=== PATIENT | female | born 1945 | race Two or more races ===

== ENCOUNTER 2016-05-14 11:56 | Emergency (ER) | payer OTHER ==
[2016-05-14 12:02] VITALS: BMI 28.0
--- NOTE | 2016-05-14 12:08 | PDOC ---
[id number] No Limitations - History of Present Illness Initial Comments: CHIEF COMPLAINT: 70 y/o afebrile female with PMH HTN, asthma and DM sent in by Dr. Hernandez for further work up of chest pain and cough. HISTORY OF PRESENT ILLNESS: The patient states she was in Dr. Hernandez's office this morning c/o chest pain with dry cough and SOB for the past 3 days. She states he also checked her sugar in the office and it was high but she's unsure of how high. She denies f/c, STALLWORTH, neck pain, changes in vision/hearing, n/v/d, abd pain, left arm pain, jaw pain, hematuria, dysuria. She is taking all medications as prescribed. Vital signs on arrival are notable for BP of 163/81. REVIEW OF SYSTEMS: GENERAL/CONSTITUTIONAL: No fever/chills. No weakness. No weight change. HEAD, EYES, EARS, NOSE AND THROAT: No change in vision. No ear pain or discharge. No sore throat. CARDIOVASCULAR: +chest pain and SOB. RESPIRATORY: +dry cough and wheezing. No hemoptysis. GASTROINTESTINAL: No abd pain, nausea, vomiting, diarrhea. GENITOURINARY: No dysuria, frequency, or change in urination. MUSCULOSKELETAL: No joint or muscle swelling or pain. No neck or back pain. SKIN: No rash or easy bruising. NEUROLOGIC: No headache, vertigo, loss of consciousness, or loss of sensation. PHYSICAL EXAM: GENERAL: The patient is awake, alert, and fully oriented, in no acute distress. She is very well appearing, ambulatory, in NAD or obvious discomfort. HEAD: Normal with no signs of trauma. ENT: Pupils equal, round and reactive to light, extraocular movements intact, sclera anicteric, conjunctiva clear. Neck supple. LUNGS: Clear to auscultation bilaterally. Normal excursion. No respiratory distress or use of accessory muscles. CV: RRR, S1/S2, no MRG. Cap refill < 2 sec. ABDOMEN: Soft, non-distended, non-tender even to deep palpation, no hepatomegaly or splenomegaly, no masses. EXTREMITIES: Normal range of motion, no edema. NEUROLOGICAL: Normal speech, normal gait. CN II-XII grossly intact. PSYCH: Normal mood, normal affect. SKIN: Warm, dry, normal turgor, no rashes or lesions noted. <Wohltman,Alondra - Last Filed: 05/14/16 17:16> <Ric Villar - Last Filed: 05/18/16 20:06> - General Chief Complaint: Blood Sugar Problem Stated Complaint: WHEEZING, HIGH SUGAR/BP (PCP SENT) Time Seen by Provider: 05/14/16 12:06 Past History - Past Medical History Asthma: Yes Cardiac Disorders: Yes (ANGINA) GI Disorders: Yes (MASS) HTN: Yes - Surgical History Cholecystectomy: Yes - Immunization History Td Vaccination: Yes Immunization Up to Date: Yes - Psycho/Social/Smoking Cessation Hx Anxiety: No Suicidal Ideation: No Smoking Status: No Smoking History: Never smoked Years of Tobacco Use: 1 Number of Cigarettes Smoked Daily: 6 Cigars Per Day: 0 Information on smoking cessation initiated: No Hx Alcohol Use: No Drug/Substance Use Hx: No Substance Use Type: None <Alondra Umanzor - Last Filed: 05/14/16 17:16> <Ric Villar - Last Filed: 05/18/16 20:06> - Past Medical History Allergies/Adverse Reactions: Allergies Allergy/AdvReac Type Severity Reaction Status Date / Time No Known Allergies Allergy Verified 05/14/16 12:01 Home Medications: Ambulatory Orders Albuterol Sulfate Inhaler - [Ventolin HFA Inhaler -] 1 inh PO DAILY 05/02/14 *Physical Exam - Vital Signs Last Vital Signs Temp Pulse Resp BP Pulse Ox 97.7 F 71 18 163/81 98 05/14/16 11:59 05/14/16 11:59 05/14/16 11:59 05/14/16 11:59 05/14/16 11:59 <Alondra Umanzor - Last Filed: 05/14/16 17:16> - Vital Signs Last Vital Signs Temp Pulse Resp BP Pulse Ox 98.1 F 81 16 129/76 99 05/14/16 17:15 05/14/16 17:15 05/14/16 17:15 05/14/16 17:15 05/14/16 17:15 <Ric Villar - Last Filed: 05/18/16 20:06> ED Treatment Course - LABORATORY CBC & Chemistry Diagram: 05/14/16 13:00 05/14/16 13:52 <Alondra Umanzor - Last Filed: 05/14/16 17:16> - LABORATORY CBC & Chemistry Diagram: 05/14/16 13:00 05/14/16 13:52 - ADDITIONAL ORDERS Additional order review: 05/14/16 13:00 Urine Culture - Final Urine - Urine Clean Catch NO GROWTH OBTAINED 05/14/16 13:00 RBC 5.01 MCV 84.4 MCHC 32.8 RDW 13.8 MPV 9.8 Neutrophils % 64.1 Lymphocytes % 27.5 D Monocytes % 5.3 Eosinophils % 1.9 D Basophils % 1.2 - Medications Given in the ED: ED Medications Discontinued Medications Generic Name Dose Route Start Last Admin Trade Name Freq PRN Reason Stop Dose Admin Albuterol/Ipratropium 1 amp 05/14/16 15:06 05/14/16 15:36 Duoneb - NEB 05/14/16 15:07 1 amp ONCE ONE Administration <Ric Villar - Last Filed: 05/18/16 20:06> Medical Decision Making - Medical Decision Making A/P: 70 y/o female with dry cough, chest pain and wheezing for the past few days. Also reported "high sugar" in Mary's office today. Plan is as follows: 1. EKG 2. CXR 3. Labs CXR IMPRESSION: No abnormality seen. EKG normal Labs unremarkable. The patient states she feels well and wants to go home. Suggested she f/u with Dr. Hernandez next week. I tried calling him but [employer] is covering and I never received a call back. Instructed her to return to the ER with any worsening or concerning symptoms. The patient verbalizes understanding of all instructions, has no further questions and is awaiting discharge. <Alondra Umanzor - Last Filed: 05/14/16 17:16> - Medical Decision Making The patient was seen and evaluated in conjunction with MARC Wright under my direct supervision, ancillary studies were reviewed. I agree with the plan as outlined by MARC Wright . <Ric Villar - Last Filed: 05/18/16 20:06> *DC/Admit/Observation/Transfer <Alondra Umanzor - Last Filed: 05/14/16 17:16> <Ric Villar - Last Filed: 05/18/16 20:06> Diagnosis at time of Disposition: Cough HTN (hypertension) Qualifiers: Hypertension type: unspecified secondary hypertension Qualified Code(s): I15.9 - Secondary hypertension, unspecified - Discharge Dispostion Disposition: HOME Condition at time of disposition: Good - Referrals Referrals: Pino Hernandez MD [Primary Care Provider] - (Call Tuesday) - Patient Instructions Printed Discharge Instructions: DI for High Blood Pressure, DI for Cough -- Adult Additional Instructions: Discharge Instructions: -Continue taking all medications as prescribed -Call Dr. Hernandez on Tuesday morning to schedule follow up appointment -Return to the ER with any worsening or concerning symptoms
[2016-05-14 13:08] LABS: URINE APPEARANCE CLEAR; URINE BILIRUBIN NEGATIVE (NEGATIVE); URINE COLOR LTYELLOW; URINE GLUCOSE (UA) 1+ (NEGATIVE); URINE KETONE NEGATIVE (NEGATIVE); URINE LEUK ESTERASE NEGATIVE (NEGATIVE); URINE NITRITE NEGATIVE (NEGATIVE); URINE PROTEIN NEGATIVE (NEGATIVE); URINE UROBILINOGEN NEGATIVE E.U./dl (0.2-1.0)
[2016-05-14 13:13] LABS: BASOPHIL 1.2 % (0-2.0); EOSINOPHIL 1.9 % (0-4.5); MCH 27.7 pg (25.7-33.7); MCHC 32.8 g/dl (32.0-36.0); MEAN CELL VOLUME 84.4 fl (80-96); MEAN PLT VOLUME 9.8 fl (7.5-11.1); NEUTROPHILS 64.1 % (42.8-82.8); RDW 13.8 % (11.6-15.6); URINE BLOOD 2+ (NEGATIVE); WHITE BLOOD COUNT 12.8 K/mm3 (4.0-10.0)
[2016-05-14 13:14] LABS: URINE MUCUS RARE; URINE RBC 2 /hpf (0-3); URINE WBC <1 /hpf (3-5)
[2016-05-14 13:43] LABS: PLATELET COMMENT2 UNABLE TO ENUMERATE; PLATELET ESTIMATE DECREASED (NORMAL)
[2016-05-14] MEDS ORDERED: ALBUTEROL SO4 2.5/IPRATROPIUM 0.5 INH SOL 3 ML VIAL.NEB. NEB ONE ×2 (15:06→15:30)
[2016-05-14 15:11] LABS: ALBUMIN 4.1 g/dl (3.4-5.0); ALK PHOS 128 U/L (45-117); ANION GAP 11 (8-16); BILIRUBIN,TOTAL 0.5 mg/dL (0.2-1.0); CALCIUM 9.7 mg/dL (8.5-10.1); CO2 25 mmol/L (21-32); CREATININE 0.7 mg/dL (0.55-1.02); GLUCOSE,RANDOM 148 mg/dL (74-106); SGOT/AST 17 U/L (15-37); TOT PROT 7.7 g/dl (6.4-8.2); TROPONIN I < 0.02 ng/ml (0.00-0.05)
[2016-05-14 15:33] LABS: SGPT/ALT 26 U/L (12-78)
[2016-05-14 17:16] VITALS: BP 129/76; PULSE 81; TEMP 98.1
--- NOTE | 2016-05-15 18:32 | EKG ---
Test Reason : Blood Pressure : / mmHG Vent. Rate : 066 BPM Atrial Rate : 066 BPM P-R Int : 152 ms QRS Dur : 088 ms QT Int : 398 ms P-R-T Axes : 038 068 037 degrees QTc Int : 417 ms NORMAL SINUS RHYTHM NORMAL ECG WHEN COMPARED WITH ECG OF 02-MAY-2014 13:01, NO SIGNIFICANT CHANGE WAS FOUND Confirmed by ARTURO RAMIREZ MD ([id number]) on 05/15/2016 6:31:58 PM Referred By: Confirmed By:ARTURO RAMIREZ MD
== END 2016-05-14 17:33 | disposition home or self-care (01) ==
LOC: JER 11:56
PROC: 3E0F7GC Introduction of Other Therapeutic Substance into Respiratory Tract, Via Natural or Artificial Opening (ICD-10-PCS; principal; 2016-05-14)
DX: I15.9 Secondary hypertension, unspecified (principal); R05 Cough
CPT/HCPCS: 36415; 71020-TC; 80053; 81003; 81015; 82550; 84484; 85025; 87086; 93005; 93010; 94640; 99283-25

== ENCOUNTER 2018-09-19 12:49 | Emergency (ER) | payer OTHER ==
[2018-09-19 13:30] VITALS: TEMP 98.2; BMI 31.1
[2018-09-19 14:53] LABS: BASO % 0.5 % (0-2.0); EOS % 2.6 % (0-4.5); HEMATOCRIT 37.6 % (32.4-45.2); HEMOGLOBIN 12.7 GM/dL (10.7-15.3); LYMPH % 28.5 % (8-40); MCH 28.6 pg (25.7-33.7); MCHC 33.8 g/dl (32.0-36.0); MEAN CELL VOLUME 84.6 fl (80-96); MONO % 9.2 % (3.8-10.2); NEUT % 59.2 % (42.8-82.8); PLATELET COUNT 282 K/MM3 (134-434); RBC 4.44 M/mm3 (3.60-5.2); RDW 13.1 % (11.6-15.6); WHITE BLOOD COUNT 7.4 K/mm3 (4.0-10.0)
[2018-09-19] MEDS ORDERED: methylPREDNISolone NA SUCC 125 MG/2 ML VIAL IVPUSH ONE (14:55)
[2018-09-19] MEDS ORDERED: ALBUTEROL SO4 2.5/IPRATROPIUM 0.5 INH SOL 3 ML VIAL.NEB. NEB ONE ×2 (14:55→15:16)
[2018-09-19] MEDS ORDERED: methylPREDNISolone NA SUCC 125 MG/2 ML VIAL ONE (15:16)
[2018-09-19 15:22] LABS: ALBUMIN 3.9 g/dl (3.4-5.0); BILIRUBIN,TOTAL 0.3 mg/dL (0.2-1); BLOOD UREA NITROGEN 12.9 mg/dL (7-18); CALCIUM 9.2 mg/dL (8.5-10.1); CREATININE 0.7 mg/dL (0.55-1.3); POTASSIUM 3.7 mmol/L (3.5-5.1); TOT PROT 7.6 g/dl (6.4-8.2)
--- NOTE | 2018-09-19 16:02 | PDOC ---
History of Present Illness - General Chief Complaint: Shortness of Breath Stated Complaint: PNEUMONIA Time Seen by Provider: 09/19/18 14:05 History Source: Patient, Family, Old Records Exam Limitations: No Limitations - History of Present Illness Initial Comments: HPI: 73 y/o female presenting to [facility] ER from Dr. Feldman clinic complaining of shortness of breath, cough productive of green and yellow sputum, upper respiratory congestion, and subjective fevers since last Tuesday. Further endorses throat itching. Some relief with prescribed asthma inhaler and Zyrtec. Was evaluated in clinic today and sent to this facility for evaluation for pneumonia. Additionally, pt expressed concern for dark stool after taking Pepto Bismol. Social Hx: - Remote smoking history Medical Hx: - Non-insulin dependent diabetes - HTN - HLD - Angina - Asthma - Arthritis Surgical Hx: - s/p cholecystectomy Review of Systems: In addition to that documented in the HPI above, the additional ROS was obtained : Constitutional: Endorses fevers and chills Head: Denies vision changes ENMT: Denies sore throat CV: Denies chest pain Resp: Per HPI GI: Denies vomiting or diarrhea : Denies painful urination or hematuria MSK: Denies recent trauma Skin: Denies new rashes Neuro: Denies new numbness or tingling or weakness Endocrine: Denies polyuria Heme: Denies bleeding or bruising Physical Examination: Constitutional: Well-developed, well-nourished, nontoxic adult female in no acute distress or obvious discomfort. Found semi-fowlers on hospital bed. Alert and oriented x4. Answered all questions appropriately and completely. Speech was non-labored, non-pressured. Throat: Oral cavity and pharynx normal. No inflammation, swelling, exudate, or lesions. Teeth and gingiva in good general condition. Neck: Supple, trachea is midline. Cardiovascular / Chest: Regular rate and regular rhythm. No murmur, rubs, clicks , or gallops. Peripheral pulses: radial pulses full. Respiratory: Breathing unlabored. Speaking in multi-word responses. Equal chest rise and fall. Diffuse rhonchi and trace expiratory wheeze without focal consolidation, rales, or stridor. Gastrointestinal: abdomen is soft, non-tender, non-distended. Neuro: Alert and oriented. Moving all four extremities spontaneously. Skin: Warm, dry, and intact. Psych: Affect: pleasant. Mood: normal. MDM: *Reviewed vital signs, nursing notes, and prior visit documentation (if available). 73 y/o female presenting from clinic for SOB, productive cough, and URI symptoms. Afebrile. Vitals unremarkable for hypotension or tachycardia. Normoxic on room air. Physical exam as described above. CXR unremarkable for acute cardiopulmonary process. CBC unremarkable for leukocytosis. Suspect likely acute bronchitis. Ordered DuoNebs and Solumedrol for symptom Pt reassessed. Found smiling and laughing. States her breathing is much better. Adventitious lung sounds improved since initial exam. Will prescribe two day course of Prednisone and Azithromycin. Discussed imaging and laboratory results with pt. Answered all questions. Provided return precautions. Pt expressed verbal understanding and agreement with plan to discharge home with outpatient follow up. Serjio Henley M.D., PGY2 Emergency Medicine Resident Past History - Past Medical History Allergies/Adverse Reactions: Allergies Allergy/AdvReac Type Severity Reaction Status Date / Time No Known Allergies Allergy Verified 09/19/18 13:31 Home Medications: Ambulatory Orders Albuterol Sulfate Inhaler - [Ventolin HFA Inhaler -] 1 inh PO DAILY 05/02/14 Azithromycin [Zithromax 250mg Tablets -] 250 mg PO UTDICT #6 tab 09/19/18 Glipizide 5 mg PO BID 09/19/18 Prednisone [Deltasone] 40 mg PO DAILY 2 Days #4 tablet 09/19/18 Ramipril 5 mg PO DAILY 09/19/18 Asthma: Yes Cardiac Disorders: Yes (ANGINA) COPD: No Dementia: Yes GI Disorders: Yes (MASS) HTN: Yes - Surgical History Cholecystectomy: Yes - Immunization History Td Vaccination: Yes Immunization Up to Date: Yes - Suicide/Smoking/Psychosocial Hx Smoking Status: No Smoking History: Never smoked Years of Tobacco Use: 1 Have you smoked in the past 12 months: No Number of Cigarettes Smoked Daily: 6 Cigars Per Day: 0 Information on smoking cessation initiated: No Hx Alcohol Use: No Drug/Substance Use Hx: No Substance Use Type: None *Physical Exam - Vital Signs Last Vital Signs Temp Pulse Resp BP Pulse Ox 98.2 F 73 22 H 140/64 98 09/19/18 13:20 09/19/18 13:20 09/19/18 13:20 09/19/18 13:20 09/19/18 13:20 ED Treatment Course - LABORATORY CBC & Chemistry Diagram: 09/19/18 14:15 09/19/18 14:15 - ADDITIONAL ORDERS Additional order review: Laboratory Results 09/19/18 09/19/18 09/19/18 15:00 14:15 14:15 Sodium Potassium Chloride Carbon Dioxide Anion Gap BUN Creatinine Est GFR (CKD-EPI)AfAm Est GFR (CKD-EPI)NonAf Random Glucose Calcium Total Bilirubin AST ALT Alkaline Phosphatase Troponin I < 0.02 B-Natriuretic Peptide 24.3 Total Protein Albumin Stool Occult Blood Negative 09/19/18 14:15 Sodium 139 Potassium 3.7 Chloride 106 Carbon Dioxide 26 Anion Gap 7 L BUN 12.9 Creatinine 0.7 Est GFR (CKD-EPI)AfAm 101.03 Est GFR (CKD-EPI)NonAf 87.17 Random Glucose 157 H Calcium 9.2 Total Bilirubin 0.3 AST 24 ALT 43 Alkaline Phosphatase 114 Troponin I B-Natriuretic Peptide Total Protein 7.6 Albumin 3.9 Stool Occult Blood 09/19/18 14:15 RBC 4.44 MCV 84.6 MCHC 33.8 RDW 13.1 MPV 9.0 Neutrophils % 59.2 Lymphocytes % 28.5 Monocytes % 9.2 Eosinophils % 2.6 Basophils % 0.5 - Medications Given in the ED: ED Medications Discontinued Medications Generic Name Dose Route Start Last Admin Trade Name Freq PRN Reason Stop Dose Admin Albuterol/Ipratropium 2 amp 09/19/18 14:55 09/19/18 15:05 Duoneb - NEB 09/19/18 14:56 2 amp ONCE ONE Administration Methylprednisolone Sodium Succinate 125 mg 09/19/18 14:55 09/19/18 15:25 Solu-Medrol - IVPUSH 09/19/18 14:56 125 mg ONCE ONE Administration *DC/Admit/Observation/Transfer Diagnosis at time of Disposition: Viral URI Reactive airway disease Qualifiers: Asthma severity: mild Asthma persistence: intermittent Asthma complication type : uncomplicated Qualified Code(s): J45.20 - Mild intermittent asthma, uncomplicated - Discharge Dispostion Disposition: HOME Condition at time of disposition: Improved Decision to Admit order: No - Prescriptions Prescriptions: Azithromycin [Zithromax 250mg Tablets -] 250 mg PO UTDICT #6 tab Prednisone [Deltasone] 40 mg PO DAILY 2 Days #4 tablet - Referrals Referrals: Pino Hernandez MD [Primary Care Provider] - - Patient Instructions Printed Discharge Instructions: DI for Acute Bronchitis Additional Instructions: You were seen today for a productive cough and shortness of breath. Your chest xray did not show signs of pneumonia. Your blood work was normal. Your symptoms are likely bronchitis. You may continue to experience a cough and congestion for the next few days. I have sent two prescriptions to your pharmacy. One is an antibiotic and one is a steroid. Take as directed on the package insert. Do not exceed the recommended dosage. You can take over the counter Tylenol as needed for pain or fever. Take as directed on the package insert. Do not exceed the recommended dosage. Follow up with your primary care doctor within the next 3-4 days. You will need to call to make an appointment. The number is included in this packet. A copy of todays results are attached to this packet. Take it to the appointment so your doctor can review them. Go to the nearest emergency department if your condition worsens or you feel like you need additional emergency evaluation. Print Language: MOZAMBICAN - Post Discharge Activity
[2018-09-19 16:10] VITALS: BP 136/64; PULSE 95
--- NOTE | 2018-09-19 16:45 | PDOC ---
Documentation entered by Carlos Mariano SCRIBE, acting as scribe for Rubén Kapadia MD. Rubén Kapadia MD: This documentation has been prepared by the García flanagan Renju, SCRIBE, under my direction and personally reviewed by me in its entirety. I confirm that the documentation accurately reflects all work, treatment, procedures, and medical decision making performed by me. Attending Attestation - Resident Resident Name: Serjio Henley - ED Attending Attestation I have performed the following: I have examined & evaluated the patient, The case was reviewed & discussed with the resident, I agree w/resident's findings & plan, Exceptions are as noted - HPI HPI: 09/19/18 16:19 The patient is a 73 year old female with a past medical history of hypertension , diabetes, and asthma who presents to the emergency department for evaluation of rhinorrhea, sore throat, wheezing, and productive cough with brown and yellow sputum since Tuesday. Per family at bedside, patient has had black stool since Tuesday. She notes paresthesia in legs and face. Denies abdominal pain, chest pain, shortness of breath. Headache, dizziness, fevers, chills, nausea,and vomiting. - Physicial Exam PE: 09/19/18 16:19 ROS: A complete review of 10 out of 10 review of systems is taken and is negative apart from what is previously mentioned below and in the HPI. Vitals: Triage Vital signs reviewed General Appearance: no acute distress, well nourished well developed, Head: Atraumatic, Eyes: Pupils equal reactive round, extraocular movement intact Neck: Supple; Chest Wall: Nontender Cardiac: Regular rate and rhythm, no murmurs, no rubs, no gallops, Lungs: (+)Bronchospasms. (+)Coarse breath sounds auscultated bilaterally. Abdomen: Soft, non distended, normal bowel sounds, non tender to palpation Rectal: Normal exam. Extremities: Full range of motion to all extremities, no cyanosis, clubbing, or edema Skin: Warm and dry, no rashes or lesions, no rash, no petechiae Neuro: Strength intact to all extremities, Sensation intact to all extremities, gait normal Psych: normal mood, normal affect - Medical Decision Making 09/19/18 18:47 73 years old history examination consistent with viral URI with some very mild GI complaints dark stool but on rectal examination had brown stool which was guaiac-negative She had subtle bronchospasm with cough on examination and rhinorrhea She was given DuoNeb's and Solu-Medrol for her reactive airway symptoms her laboratory analysis was unremarkable her EKG was unremarkable her cardiac enzyme was negative her chest x-ray demonstrated no acute infection Reevaluation after steroids and nebs patient feels much better breathing is markedly improved she is asking to go home Given her age and risk factors she'll be treated with a Z-Sherwin as well as a short course of steroids has a nebulizer at home that she can use. She'll follow-up with her primary care provider in 2 days she will return to the emergency department for any severe worsening symptoms or for any concerns.
--- NOTE | 2018-09-19 17:04 | EKG ---
Test Reason : Blood Pressure : / mmHG Vent. Rate : 073 BPM Atrial Rate : 073 BPM P-R Int : 142 ms QRS Dur : 088 ms QT Int : 386 ms P-R-T Axes : 056 039 -07 degrees QTc Int : 425 ms NORMAL SINUS RHYTHM NONSPECIFIC T WAVE ABNORMALITY ABNORMAL ECG WHEN COMPARED WITH ECG OF 14-MAY-2016 12:26, INVERTED T WAVES HAVE REPLACED NONSPECIFIC T WAVE ABNORMALITY IN INFERIOR LEADS INVERTED T WAVES HAVE REPLACED NONSPECIFIC T WAVE ABNORMALITY IN ANTERIOR LEADS Confirmed by MD Lenin, Ceasar ([id number]) on 09/19/2018 5:04:02 PM Referred By: Confirmed By:Ceasar Phelps MD
== END 2018-09-19 16:26 | disposition home or self-care (01) ==
LOC: JER 12:49
PROC: 3E0F7GC Introduction of Other Therapeutic Substance into Respiratory Tract, Via Natural or Artificial Opening (ICD-10-PCS; principal; 2018-09-19)
PROC: 3E0333Z Introduction of Anti-inflammatory into Peripheral Vein, Percutaneous Approach (ICD-10-PCS; 2018-09-19)
DX: J45.20 Mild intermittent asthma, uncomplicated (principal); J06.9 Acute upper respiratory infection, unspecified; B97.89 Other viral agents as the cause of diseases classified elsewhere; I25.119 Atherosclerotic heart disease of native coronary artery with unspecified angina pectoris; I11.0 Hypertensive heart disease with heart failure; E11.9 Type 2 diabetes mellitus without complications; Z79.84 Long term (current) use of oral hypoglycemic drugs; E78.5 Hyperlipidemia, unspecified; J45.909 Unspecified asthma, uncomplicated; M12.9 Arthropathy, unspecified
CPT/HCPCS: 36415; 71046-TC-FY; 80053; 82272; 83880; 84484; 85025; 93005; 93010; 94640; 96374; 99284-25

== ENCOUNTER 2019-01-16 12:33 | Inpatient (IN) | payer OTHER ==
--- NOTE | 2019-01-16 13:53 | PDOC ---
History of Present Illness - General Chief Complaint: Head/Neck problem Stated Complaint: FACE NUMBNESS Time Seen by Provider: 01/16/19 13:01 tPA Exclusion checklist 3-4.5h - Time Elapsed Date last known well: 01/15/19 Time last known well: 12:00 Elaspsed time: 4 Day(s) and 5 Hour(s) and 33 Minutes - Thrombolytic Therapy Candidate Is patient eligible for thrombolytic therapy: No - Ineligibility reason(s) Reasons No tPA given: Outside of window - delayed arrival NIH Stroke Scale - Last Known Well Date/Time & Onset Date Last Known Well: 01/15/19 Time Last Known Well: 12:00 - Initial Evaluation Level of consciousness: Alert Ask patient the month and their age: Answers both correctly Ask patient to open & close eyes; make fist and let go: Obeys both correctly Best gaze (horizontal eye movement): Normal Visual field testing: No visual field loss Facial paresis (Show teeth/raise eyebrows/close eyes tight): Normal symmetrical movement Motor Function: Left Arm: Normal Motor Function: Right Arm: Normal (extends arm 90 (or 45) degrees for 10 seconds without drift Motor Function: Left Leg: Normal (extends leg 30 degrees for 5 seconds without drift) Motor Function: Right Leg: Normal (extends leg 30 degrees for 5 seconds without drift) Limb Ataxia: No ataxia Sensory(Use pinprick test arms,legs,trunk,face/side to side): Normal Best language (Describe picture, name items, read sentences): No Aphasia Dysarthria (read several words): Normal articulation Extinction and Inattention: No abnormality - Total Score NIH Stroke Scale Score: 0 Past History - Past Medical History Allergies/Adverse Reactions: Allergies Allergy/AdvReac Type Severity Reaction Status Date / Time No Known Allergies Allergy Verified 09/19/18 13:31 Home Medications: Ambulatory Orders Aspirin Coated [Ecotrin -] 81 mg PO DAILY tablet.ec 01/17/19 Atorvastatin Ca [Lipitor] 20 mg PO HS #30 tablet 01/17/19 Ramipril [Altace] 10 mg PO DAILY capsule 01/17/19 metFORMIN HCL [Glucophage -] 500 mg PO BID@0700,1630 #60 tablet 01/17/19 Asthma: Yes Cardiac Disorders: Yes (ANGINA) COPD: No Dementia: Yes GI Disorders: Yes (MASS) HTN: Yes - Surgical History Cholecystectomy: Yes - Immunization History Td Vaccination: Yes Immunization Up to Date: Yes - Psycho Social/Smoking Cessation Hx Smoking Status: No Smoking History: Never smoked Years of Tobacco Use: 1 Have you smoked in the past 12 months: No Number of Cigarettes Smoked Daily: 6 Cigars Per Day: 0 Hx Alcohol Use: No Drug/Substance Use Hx: No Substance Use Type: None *Physical Exam - Vital Signs Last Vital Signs Temp Pulse Resp BP Pulse Ox 98 F 75 18 194/92 H 99 01/16/19 12:51 01/16/19 12:51 01/16/19 12:51 01/16/19 12:51 01/16/19 12:55 ED Treatment Course - LABORATORY CBC & Chemistry Diagram: 01/17/19 05:25 01/17/19 05:25 Medical Decision Making - Medical Decision Making 01/16/19 14:19 HPI: 73yo F hx NIDDM, HTN, vertigo, HLD, angina, asthma, and OA BIBA from PCP Dr Hernandez c/o acute on chronic intermittent numbness of entire b/l face and scalp, L hand, and L ankle x years, now present x2 days, with intermittent vertigo since yesterday. Pt was at PCP's office for normal checkup when she mentioned these intermittent chronic sx. Stated most recent occurrence of numbness started gradually 2 days ago, intermittent since then, somewhat present now, hx similar sx x years of same parts of body. Denies stroke or previous workup for sx. Endorses a little head pressure now, intermittent, entire head, mild, gradual onset. Also c/o vertigo intermittently since yesterday, resolved now, consistent with known vertigo. Pt has not tried any medications. Pt is able to walk without assistance, no change in walking. Denies trauma, head injury, neck stiffness, fever, chills, fatigue, numbness/tingling, weakness, vision changes, shortness of breath, cough, chest pain, palpitations, leg swelling, abdominal pain, blood in stool, diarrhea, constipation, nausea, vomiting, dysuria, hematuria, confusion, hx stroke, facial droop, difficulty speaking or walking. PCP sent pt by EMS for sx plus elevated BP in office. ROS: Constitutional: Negative for chills, fever, fatigue, diaphoresis. HENT: Negative for sore throat, rhinorrhea, congestion. Eyes: Negative for visual disturbance. Respiratory: Negative for shortness of breath, cough, and wheezing. Cardiovascular: Negative for chest pain, palpitations, and leg swelling. Gastrointestinal: Negative for abdominal pain, blood in stool, constipation, diarrhea, nausea, and vomiting. Genitourinary: Negative for dysuria, flank pain, and hematuria. Musculoskeletal: Negative for myalgias, back pain, and neck pain. Skin: Negative for rash. Neurological: Positive for vertigo, numbness, headaches. Negative for light- headedness, syncope, weakness. Psychiatric/Behavioral: Negative for behavioral problems and confusion. PE: Gen: Alert, NAD, comfortable-appearing. HEENT: PERRL, EOMI, MMM, NCAT. No conjunctival pallor. Sclera are non-icteric. CV: Regular rate and rhythm. No murmurs, rubs, or gallops. PULM: No resp distress. CTAB, no wheezes, rales, or rhonchi. ABD: soft, NT/ND, no rebound tenderness or guarding, no CVA tenderness. BACK: No TTP of c/t/l-spine. No step-offs or deformities. MSK: No bony deformities. 2+ pulses in all extremities. NEURO: AAOx3. PERRL. CN 2-12 intact. 5/5 strength in all extremities. Sensation to light touch intact in all extremities. No pronator drift. No dysmetria. No dysdiadochokinesia. No abnormal nystagmus. No skew deviation. Normal gait. EXTREMITIES: No cyanosis. No clubbing. No edema. No calf tenderness. PSYCH: Normal mood and thought pattern. SKIN: Warm and dry. Normal capillary refill. No rashes. No jaundice. MDM: 73yo F hx NIDDM, HTN, vertigo, HLD, angina, asthma, and OA BIBA from PCP Dr Hernandez with acute on chronic intermittent numbness of entire face and scalp, L hand, and L ankle x years, now present x2 days, with intermittent vertigo since yesterday. Hypertensive 170s/90s, VSS, afebrile, neurologically intact. Ddx: TIA/CVA, peripheral neuropathy, hypertensive urgency/emergency, ICH, metabolic derangement, anemia, cardiac pathology -TIA/CVA labs -EKG -HTN control -CTH -CXR -Dispo: likely admit for BP control and stroke w/u 01/16/19 15:19 NIHSS 0 Pt still complaining of headache - pain management. Labs,EKG,CTH,CXR reviewed. EKG: NSR, 64bpm, normal intervals, normal axis, no e/o acute ischmeia, no significant changes from prior BP 151/81. Will admit to tele stroke unit for CVA/TIA r/o vs HTN urgency under Dr. Hernandez. 01/16/19 15:23 Spoke with covering for Dr Hernandez - admitted to tele stroke unit. Discharge - Discharge Information Problems reviewed: Yes Clinical Impression/Diagnosis: HTN (hypertension), Numbness and tingling, Vertigo Condition: Stable Disposition: HOME - Admission Yes - Follow up/Referral - Patient Discharge Instructions - Post Discharge Activity
--- NOTE | 2019-01-16 14:07 | PDOC ---
Attending Attestation - Resident Resident Name: Yolanda Cardenas - ED Attending Attestation I have performed the following: I have examined & evaluated the patient, The case was reviewed & discussed with the resident, I agree w/resident's findings & plan - HPI HPI: 01/16/19 14:04 73-year-old female with history of hypertension presents from PCP office with complaints of lightheadedness and variable numbness and weakness. Patient had routine outpatient appointment with her PCP, while there reported 1 week of right leg weakness with stuttering gait, also reported intermittent left forearm tingling since last night and onset of left leg tingling while at the office. Slight head pressure without sudden headache, no vision change or speech change, no chest pain or difficulty breathing. Patient's blood pressure was elevated at office, so EMS was activated. EMS found patient to be neurologically intact but with elevated blood pressure. - Physicial Exam PE: 01/16/19 14:03 Blood pressure 170 systolic, afebrile, vital signs stable Patient is well-appearing standing by her stretcher Heart is regular, lungs are clear NEURO: Mental status: The patient is alert and oriented x3. Cranial nerves: Cranial nerves II through XII are intact Motor: The upper extremities are 5 over 5 in all muscle groups. The lower extremities are 5 over 5 in all muscle groups. No pronator drift. Sensation: Sensation is intact to light touch throughout. Cerebellar: Weeopf-fwjsfo-ucry is normal in both upper extremities. Heel-knee- peterson is normal in both lower extremities. Reflexes: 2+ and symmetric in the upper and lower extremities. Gait: Normal. Heel and toe walking are normal. Tandem gait is normal. - Medical Decision Making 01/16/19 14:04 73-year-old female presents with nonlocalized and nonspecific neurological complaints varying in onset from 1 week ago to today, no objective findings on examination, she is hypertensive, raising the suspicion of intermittent symptomatic hypertensive episodes. stroke protocol initiated, not candidate for code gomez BP monitoring and control reassess, will need admission for bp control and TIA workup Heart Score/ECG Review #1 ECG reviewed & interpreted by me at: 12:53 General ECG Interpretation: Sinus Rhythm, Normal Rate (64), Normal Intervals ( qtc 416), No acute ischemic changes (T wave flattening V3V4) Compared to previous ECG there are: No significant change (c/w 09/19/18)
[2019-01-16 14:10] LABS: BASO % 0.9 % (0-2.0); EOS % 2.5 % (0-4.5); HEMATOCRIT 38.4 % (32.4-45.2); HEMOGLOBIN 12.9 GM/dL (10.7-15.3); LYMPH % 29.9 % (8-40); MCH 28.2 pg (25.7-33.7); MCHC 33.6 g/dl (32.0-36.0); MEAN CELL VOLUME 83.9 fl (80-96); MEAN PLT VOLUME 9.2 fl (7.5-11.1); MONO % 5.8 % (3.8-10.2); NEUT % 60.9 % (42.8-82.8); PLATELET COUNT 329 K/MM3 (134-434); RBC 4.58 M/mm3 (3.60-5.2); RDW 13.6 % (11.6-15.6); WHITE BLOOD COUNT 8.4 K/mm3 (4.0-10.0)
[2019-01-16 14:14] LABS: EPI CELLS 0.8 /HPF (0-5/HPF); HYALINE CASTS 0 /lpf (0-8); URINE APPEARANCE CLEAR; URINE BACTERIA 1.4 /hpf (NEGATIVE); URINE BILIRUBIN NEGATIVE (NEGATIVE); URINE COLOR YELLOW; URINE GLUCOSE (UA) NEGATIVE (NEGATIVE); URINE KETONE NEGATIVE (NEGATIVE); URINE LEUK ESTERASE NEGATIVE (NEGATIVE); URINE NITRITE NEGATIVE (NEGATIVE); URINE PROTEIN NEGATIVE (NEGATIVE); URINE RBC 2 /hpf (0-4); URINE UROBILINOGEN 0.2 mg/dL (0.2-1.0); URINE WBC 0 /hpf (0-5)
[2019-01-16 14:24] LABS: INR 0.93 (0.83-1.09)
[2019-01-16 14:27] LABS: ACTIVATED PTT 28.8 SECONDS (25.2-36.5)
[2019-01-16 14:45] LABS: CHOLESTEROL 205 mg/dL (50-200); HDL CHOLESTEROL 51 mg/dL (40-60); LDL CHOLESTEROL (ONLY SJRH) 121 mg/dL (5-100); TRIGLYCERIDES 223 mg/dL (0-150)
[2019-01-16 14:51] LABS: ALBUMIN 4.1 g/dl (3.4-5.0); BILIRUBIN,TOTAL 0.4 mg/dL (0.2-1); BLOOD UREA NITROGEN 9.4 mg/dL (7-18); CALCIUM 9.6 mg/dL (8.5-10.1); CREATININE 0.6 mg/dL (0.55-1.3); TOT PROT 7.7 g/dl (6.4-8.2)
--- NOTE | 2019-01-16 14:55 | EKG ---
Test Reason : Blood Pressure : / mmHG Vent. Rate : 064 BPM Atrial Rate : 064 BPM P-R Int : 170 ms QRS Dur : 088 ms QT Int : 404 ms P-R-T Axes : 051 060 031 degrees QTc Int : 416 ms NORMAL SINUS RHYTHM NORMAL ECG WHEN COMPARED WITH ECG OF 19-SEP-2018 13:11, T WAVE INVERSION LESS EVIDENT IN INFERIOR LEADS NONSPECIFIC T WAVE ABNORMALITY NO LONGER EVIDENT IN LATERAL LEADS Confirmed by MD ÓSCAR, PURVI ([id number]) on 01/16/2019 2:54:55 PM Referred By: Confirmed By:PURVI CANTRELL MD
[2019-01-16] MEDS ORDERED: ACETAMINOPHEN 500 MG TABLET (FP) PO ONE (15:20)
[2019-01-16] MEDS ORDERED: ACETAMINOPHEN 325 MG TABLET (FP) ONE (15:45)
--- NOTE | 2019-01-16 16:21 | HP ---
Admitting History and Physical - Primary Care Physician PCP: Pino Hernandez - Admission Chief Complaint: LUE numbness History of Present Illness: Patient is a 73 y/o female with past medical history of HTN. She was sent to ER from PCP office for LUE numbness/tingling that began last night with LLE numbness/tingling that began while in the office earlier today. She complains of slight head pressure, no slurred speech or facial droop noted on examination. History Source: Patient Limitations to Obtaining History: No Limitations - Past Medical History Cardiovascular: Yes: HTN - Smoking History Smoking history: Never smoked Have you smoked in the past 12 months: No Aproximately how many cigarettes per day: 6 - Alcohol/Substance Use Hx Alcohol Use: No - Social History Usual Living Arrangement: Yes: Alone ADL: Independent History of Recent Travel: No Home Medications - Allergies Allergies/Adverse Reactions: Allergies Allergy/AdvReac Type Severity Reaction Status Date / Time No Known Allergies Allergy Verified 09/19/18 13:31 - Home Medications Home Medications: Ambulatory Orders Glipizide 5 mg PO BID 09/19/18 Ramipril 5 mg PO DAILY 09/19/18 Review of Systems - Review of Systems Constitutional: reports: Weakness Eyes: reports: No Symptoms HENT: reports: No Symptoms Neck: reports: No Symptoms Cardiovascular: reports: Chest Pain (r sided) Respiratory: reports: No Symptoms Gastrointestinal: reports: No Symptoms Genitourinary: reports: No Symptoms Breasts: reports: No Symptoms Reported Musculoskeletal: reports: No Symptoms Integumentary: reports: No Symptoms Neurological: reports: Numbness (left side of face and LUE) Endocrine: reports: No Symptoms Hematology/Lymphatic: reports: No Symptoms Psychiatric: reports: No Symptoms Physical Examination Vital Signs: Vital Signs Temperature 98 F 01/16/19 12:51 Pulse Rate 75 01/16/19 12:51 Respiratory Rate 18 01/16/19 12:51 Blood Pressure 194/92 H 01/16/19 12:51 O2 Sat by Pulse Oximetry (%) 99 01/16/19 12:55 Constitutional: Yes: No Distress, Calm Eyes: Yes: Conjunctiva Clear HENT: Yes: Atraumatic Cardiovascular: Yes: Regular Rate and Rhythm Respiratory: Yes: Regular, CTA Bilaterally Gastrointestinal: Yes: Normal Bowel Sounds, Soft Musculoskeletal: Yes: Muscle Weakness (LUE and LLE) Extremities: Yes: WNL Edema: No Neurological: Yes: Alert, Oriented, Weakness (LUE) Psychiatric: Yes: Alert, Oriented Labs: CBC, BMP 01/16/19 13:15 01/16/19 13:15 Imaging - Results Cat Scan: Report Reviewed Problem List - Problems (1) HTN (hypertension) Assessment/Plan: -Ramipril -low Na diet Code(s): I10 - ESSENTIAL (PRIMARY) HYPERTENSION (2) Numbness and tingling Assessment/Plan: -Cardiology and Neurology consult -Head CT scan shows no acute ICH, edema, midline shift, mass effect, or skull fracture -fall precaution -Carotid US ordered -lipid panel -Echo 05/2018 shows normal LV size, wall motion and systolic function, normal LA and RA in size no significant valvular abnormality Code(s): R20.0 - ANESTHESIA OF SKIN; R20.2 - PARESTHESIA OF SKIN (3) Diabetes mellitus Assessment/Plan: -Glipizide -HgA1c -ISS -diabetic diet Code(s): E11.9 - TYPE 2 DIABETES MELLITUS WITHOUT COMPLICATIONS Assessment/Plan see problem list dvt ppx
[2019-01-16] MEDS: INSULIN SLIDING SCALE (NOVOLOG) 1 VIAL SQ SCH ×2 (16:38→22:40)
--- NOTE | 2019-01-16 19:03 | CON.CARD ---
Consult Consult Specialty:: Cardiology Referred by:: Dr. Hernandez Reason for Consultation:: TIA and hypertension - History of Present Illness Chief Complaint: Lightheadedness and variable numbness and weakness History of Present Illness: 73-year-old woman with a PMHx of hypertension and DM-II referred by Dr. Hernandez 01/16/19 for evaluation of possible TIA. The patient has been experiencing intermittent head heaviness, facial numbness and left hand numbness for two months. She reports right leg weakness and poor balance for 5 days. She presented to Dr. Hernandez's office today with worsening lightheadedness and variable numbness and weakness. Patient's blood pressure was elevated at office. EMS found patient to be neurologically intact but with elevated blood pressure. The patient was seen in ED. ECG is normal with baseline heart rate of [address] head showed no evidence of infarct, bleeding or edema. CXR unremarkable. She appears comfortable without acute distress. No neurological deficits except left hand numbness. Previous Diagnostic Cardiac Studies: Echo 06/02/2018: Normal LV size, wall motion and systolic function. RV is not well visualized. Normal LA and RA in size. No significant valvular abnormality. Nuclear stress test 06/09/2018: Normal myocardial perfusion. Normal LV systolic function. LVEF = 70%. - History Source History Provided By: Patient, Medical Record Limitations to Obtaining History: No Limitations - Past Medical History Cardio/Vascular: Yes: HTN - Alcohol/Substance Use Hx Alcohol Use: No - Smoking History Smoking history: Never smoked Have you smoked in the past 12 months: No Aproximately how many cigarettes per day: 6 Home Medications - Allergies Allergies/Adverse Reactions: Allergies Allergy/AdvReac Type Severity Reaction Status Date / Time No Known Allergies Allergy Verified 09/19/18 13:31 - Home Medications Home Medications: Ambulatory Orders Glipizide 5 mg PO BID 09/19/18 Ramipril 5 mg PO DAILY 09/19/18 Review of Systems - Review of Systems Constitutional: reports: Weakness Eyes: reports: No Symptoms HENT: reports: No Symptoms Neck: reports: No Symptoms Cardiovascular: reports: No Symptoms Respiratory: reports: No Symptoms Gastrointestinal: reports: No Symptoms Genitourinary: reports: No Symptoms Breasts: reports: No Symptoms Reported Musculoskeletal: reports: Muscle Weakness Integumentary: reports: No Symptoms Neurological: reports: Dizziness, Headache, Numbness, Parasthesia, Unsteady Gait , Weakness Endocrine: reports: No Symptoms Hematology/Lymphatic: reports: No Symptoms Psychiatric: reports: No Symptoms - Risk Factors Known Risk Factors: Yes: Age, Diabetes Mellitus, Hypertension Vital Signs: Vital Signs Temperature 98.1 F 01/16/19 16:22 Pulse Rate 71 01/16/19 16:22 Respiratory Rate 18 01/16/19 16:22 Blood Pressure 141/67 01/16/19 16:22 O2 Sat by Pulse Oximetry (%) 97 01/16/19 16:22 General: Well developed. Well nourished. No acute distress. Head: Normocephalic. Atraumatic, Eyes: PERRLA, EOMI. Sclerae anicteric. Conjunctivae clear. Neck: Supple. No JVD. No bruits. Heart: Normal S1, S2: Regular rhythm and rate. No murmur. No gallop or rub. Lungs: Symmetrical air entry. Clear to auscultation. No crackle. No wheezing or rhonchi. Abdomen: Soft. Bowel sound positive. Non tender. No masses. Extremities: No edema. No clubbing or cyanosis. PD 2+, equal bilaterally. Neuro: Intact, no focal findings. AAO X3 - Other Data Labs, Other Data: CBC, BMP 01/16/19 13:15 01/16/19 13:15 INR, PTT INR 0.93 (0.83-1.09) 01/16/19 13:15 Troponin, BNP 01/16/19 13:15 Troponin I < 0.02 Troponin, BNP 01/16/19 13:15 Troponin I < 0.02 Imaging - Results Chest X-ray: Image Reviewed Cat Scan: Image Reviewed EKG: Image Reviewed Assessment/Plan 73-year-old woman with a PMHx of hypertension and DM-II referred by Dr. Hernandez 01/16/19 for evaluation of possible TIA. ECG is normal with baseline heart rate of [address] head showed no evidence of infarct, bleeding or edema. CXR unremarkable. Previous Diagnostic Cardiac Studies: Echo 06/02/2018: Normal LV size, wall motion and systolic function. RV is not well visualized. Normal LA and RA in size. No significant valvular abnormality. Nuclear stress test 06/09/2018: Normal myocardial perfusion. Normal LV systolic function. LVEF = 70%. 1) Possible TIA: Neurological evaluation. May need brain MRI as per neurology consult. 2) Hypertension: Systolic blood pressure is mildly elevated in ED. May increase ramipril to 10 mg daily if BP remains elevated after admission. No further cardiac test recommended at this time. Please do not hesitate to call us for re-consult at any time if any further questions or additional issue arises regarding this patient.
[2019-01-16 21:26] VITALS: BMI 24.0
[2019-01-16] MEDS: glipiZIDE 5 MG TABLET (FP) PO SCH (22:39)
[2019-01-16] MEDS: HEPARIN NA (PORCINE) 5,000 UNITS/ML 1ML VIAL SQ SCH (22:40)
[2019-01-17] MEDS: INSULIN SLIDING SCALE (NOVOLOG) 1 VIAL SQ SCH ×2 (06:20→11:35)
[2019-01-17] MEDS: glipiZIDE 5 MG TABLET (FP) PO SCH (06:20)
[2019-01-17 06:52] LABS: BASO % 0.7 % (0-2.0); EOS % 3.8 % (0-4.5); HEMATOCRIT 35.5 % (32.4-45.2); LYMPH % 40.3 % (8-40); MCH 28.5 pg (25.7-33.7); MCHC 33.8 g/dl (32.0-36.0); MEAN CELL VOLUME 84.3 fl (80-96); MEAN PLT VOLUME 8.7 fl (7.5-11.1); NEUT % 49.2 % (42.8-82.8); PLATELET COUNT 280 K/MM3 (134-434); RBC 4.21 M/mm3 (3.60-5.2); RDW 13.3 % (11.6-15.6); WHITE BLOOD COUNT 7.1 K/mm3 (4.0-10.0)
[2019-01-17 06:53] VITALS: TEMP 97.6
[2019-01-17 07:23] LABS: ALBUMIN 3.4 g/dl (3.4-5.0); ALK PHOS 102 U/L (45-117); ANION GAP 7 MMOL/L (8-16); BILIRUBIN,TOTAL 0.3 mg/dL (0.2-1); BLOOD UREA NITROGEN 14.6 mg/dL (7-18); CALCIUM 8.9 mg/dL (8.5-10.1); CHLORIDE 108 mmol/L (98-107); CHOLESTEROL 178 mg/dL (50-200); CO2 25 mmol/L (21-32); CREATININE 0.7 mg/dL (0.55-1.3); GLUCOSE,RANDOM 185 mg/dL (74-106); HDL CHOLESTEROL 44 mg/dL (40-60); LDL CHOLESTEROL (ONLY SJRH) 104 mg/dL (5-100); MAGNESIUM 2.1 mg/dL (1.8-2.4); PHOSPHOROUS 3.6 mg/dL (2.5-4.9); POTASSIUM 3.8 mmol/L (3.5-5.1); SGOT/AST 18 U/L (15-37); SGPT/ALT 31 U/L (13-61); SODIUM 140 mmol/L (136-145); TOT PROT 6.6 g/dl (6.4-8.2); TRIGLYCERIDES 216 mg/dL (0-150)
[2019-01-17] MEDS: HEPARIN NA (PORCINE) 5,000 UNITS/ML 1ML VIAL SQ SCH (09:30)
[2019-01-17] MEDS ORDERED: RAMIPRIL 5 MG CAPSULE (FP) PO SCH ×2 (10:00→10:05)
--- NOTE | 2019-01-17 10:05 | DS ---
Physical Examination Vital Signs: Vital Signs Temperature 97.6 F 01/17/19 06:00 Pulse Rate 66 01/17/19 06:00 Respiratory Rate 18 01/17/19 06:00 Blood Pressure 150/75 01/17/19 06:00 O2 Sat by Pulse Oximetry (%) 96 01/17/19 05:00 Cardiovascular: Yes: Regular Rate and Rhythm Respiratory: Yes: Regular, CTA Bilaterally Gastrointestinal: Yes: Normal Bowel Sounds, Soft Edema: No Neurological: Yes: Alert, Oriented Labs: CBC, BMP 01/17/19 05:25 01/17/19 05:25 Discharge Summary Problems reviewed: Yes Reason For Visit: NUMBNESS, AND TINGLING SENSATION OF SKIN Current Active Problems Diabetes mellitus (Acute) HTN (hypertension) (Acute) Numbness and tingling (Acute) Vertigo (Acute) Hospital Course: - Problems (1) HTN (hypertension) Assessment/Plan: -Ramipril -low Na diet Code(s): I10 - ESSENTIAL (PRIMARY) HYPERTENSION (2) Numbness and tingling Assessment/Plan: -Cardiology and Neurology consult -Head CT scan shows no acute ICH, edema, midline shift, mass effect, or skull fracture -fall precaution -Carotid US ordered -lipid panel -Echo 05/2018 shows normal LV size, wall motion and systolic function, normal LA and RA in size no significant valvular abnormality -MRI of Head if neg to dc home Code(s): R20.0 - ANESTHESIA OF SKIN; R20.2 - PARESTHESIA OF SKIN (3) Diabetes mellitus Assessment/Plan: -Glipizide -HgA1c -ISS -diabetic diet Code(s): E11.9 - TYPE 2 DIABETES MELLITUS WITHOUT COMPLICATIONS Condition: Stable - Instructions Referrals: Pino Hernandez MD [Primary Care Provider] - Disposition: HOME - Home Medications Comprehensive Discharge Medication List: Ambulatory Orders Ramipril 5 mg PO DAILY 09/19/18 Aspirin Coated [Ecotrin -] 81 mg PO DAILY tablet.ec 01/17/19 Atorvastatin Ca [Lipitor] 20 mg PO HS #30 tablet 01/17/19 metFORMIN HCL [Glucophage -] 500 mg PO BID@0700,1630 #60 tablet 01/17/19
[2019-01-17] MEDS ORDERED: ASPIRIN COATED 81 MG TABLET.EC PO SCH (10:15)
--- NOTE | 2019-01-17 10:19 | CONSULT ---
Consult - text type - Consultation Consultation Note: NEUROLOGY CONSULT GREATLY APPRECIATED: Events reviewed. Patient examined. This 73 yo RH woman lives alone and has 4 adult children. PMHX: DM and HTN, on: glipizide, ramipril. Reports history of "migraines" most of her life. Within past three months, she has experienced somewhat different headaches. She describes this as holocranial and facial "numbness" and "tingling" that can be warned by "green lights and crystals." These are brief in nature and self resolve within 15 minutes. + Photophobia, phonophobia, kinesiophobia, and dizzinesss. She wasn't worried about these symptoms, but alerted her C[employer]IED [employer] PRO[employer] MANAGER yesterday who advised her to go to hospital. Today she is without complaints of head discomfort. BP on admission= 194/92-> 150/75. FH++ son and daughter with headaches. Head CT (reviewed): Normal study. WBC= 7.1K; MCV= 81.3; TSH=3.46 A1c= 8.2% MIGUEL: Cor reg (60s). No bruit. Neck supple. + Tinel's on L. R hand digit III, IV Dupuytren contracture. NEURO: Awake, alert, responsive. Ox x 3. Speech fluent. CNII-CNXII: EOM's full without nystagmus. Full ordonez. No facial. Gag ok. Motor: No drift or tremor. 4-/5 ABP on L. Strength otherwise normal. Reflexes normal including AJ's. Plantars silent. Coordination: No FTN dystaxia. Sensation: Min reduced vibration toes. Hyperasthesia digits I,II, III B/L. Romberg - Gait: Normal including heels, toes, tandem. Impression: Essentially Normal Neurological Exam Migraine Headaches with aura (Classical Migraine) Possible L Carpal Tunnel Syndrome (CTS) Suggest: Await MRI of brain, Carotid duplex Orthostatic BPs Check ESR, CRP, B12, Fe++, TIBC, Ferritin Control of systolic BP < 140s. May achieve benefit of improved BP control and Migraines with Nadolol 40 mg po daily. Glycemic control. Ophthalmology constant and Neuro f/u as outpatient. Thank you very much, Yair Larson MD
[2019-01-17 15:06] VITALS: BP 138/67; PULSE 69
[2019-01-17] MEDS ORDERED: metFORMIN HCL 500 MG TABLET (FP) PO SCH (16:30)
[2019-01-17] MEDS ORDERED: ATORVASTATIN CA 20 MG TABLET (FP) PO SCH (22:00)
== END 2019-01-17 15:09 | disposition home or self-care (01) | DRG 199 ==
LOC: JER 12:33 → JERBED 15:18 → J4W 20:49
PROVIDERS: ADMIT Family Medicine; ATTEND Family Medicine
DX: I10 Essential (primary) hypertension (principal); J45.909 Unspecified asthma, uncomplicated; I20.9 Angina pectoris, unspecified; G43.109 Migraine with aura, not intractable, without status migrainosus; R20.2 Paresthesia of skin; E11.9 Type 2 diabetes mellitus without complications; F03.90 Unspecified dementia, unspecified severity, without behavioral disturbance, psychotic disturbance, mood disturbance, and anxiety
CPT/HCPCS: 36415; 70450-TC; 70551-TC; 71045-TC-FY; 80053; 80061; 81003; 82465; 82550; 82962; 83036; 83718; 83721; 83735; 84100; 84443; 84478; 84484; 85025; 85610; 85730; 86850; 86900; 86901; 93005; 93010; 93880-TC; 99285-25; J1644